=== PATIENT | female | born 1955 | race American Indian/Alaskan Native ===

== ENCOUNTER 2018-07-05 17:11 | Emergency (ER) | payer MEDICARE ==
[2018-07-05] MEDS ORDERED: NACL 0.9% 1000 ML 1,000 ML IV ONE (17:33)
[2018-07-05 18:06] LABS: Basophils # (Auto) 0.1 K/mm3 (0.0-0.1); Basophils % (Auto) 1.3 % (0.0-1.8); Eosinophils % (Auto) 0.5 % (0.0-4.3); Hematocrit 42.8 % (30.3-42.9); Hemoglobin 13.6 gm/dl (10.1-14.3); Lymphocytes % (Auto) 29.3 % (13.4-35.0); Mean Corpuscular HGB Conc 32 % (30-34); Mean Corpuscular Hemoglobin 27 pg (28-32); Mean Corpuscular Volume 83 fl (79-97); Monocytes # (Auto) 0.5 K/mm3 (0.0-0.8); Monocytes % (Auto) 7.6 % (0.0-7.3); Platelet Count 190 K/mm3 (140-440); Red Blood Count 5.13 M/mm3 (3.65-5.03)
[2018-07-05 18:25] LABS: Alanine Aminotransferase 15 units/L (7-56); BUN/Creatinine Ratio 10; Blood Urea Nitrogen 8 mg/dL (7-17); Calcium 9.5 mg/dL (8.4-10.2); Hemolysis Index 13; Lipase 33 units/L (13-60)
[2018-07-05 18:38] LABS: Bacteria,Urine 1+ /HPF (Negative); Bilirubin,Urine NEG (Negative); Blood,Urine MOD (Negative); Color,Urine Yellow (Yellow); Urobilinogen,Urine < 2.0 mg/dL (<2.0)
[2018-07-05] MEDS ORDERED: PROVENTIL IH ONE (20:16)
[2018-07-05] MEDS ORDERED: CATAPRES PO STA (20:17)
[2018-07-05] MEDS ORDERED: ZOFRAN ODT PO STA (20:17)
--- NOTE | 2018-07-05 23:49 | XRay Report ---
FINAL REPORT PROCEDURE: XR CHEST ROUTINE 2V TECHNIQUE: PA and lateral chest radiographs were obtained. CPT 62722 HISTORY: CHEST PAIN COMPARISON: No prior studies are available for comparison. FINDINGS: Heart: Normal. Mediastinum/Vessels: Normal. Lungs/Pleural space: No infiltrate, effusion, or pneumothorax. Bony thorax: No acute osseous abnormality. Other: IMPRESSION: No pulmonary infiltrates.
--- NOTE | 2018-07-06 00:23 | Emergency Department Report ---
ED General Adult HPI - General Chief complaint: Abdominal Pain Stated complaint: ABD PAIN Time Seen by Provider: 07/05/18 20:09 Source: patient Mode of arrival: Ambulatory Limitations: No Limitations - History of Present Illness Initial comments: 63-year-old [place] female recently relocated from [place] 4 months ago position emerge department complaining of 2-3 day history of nausea and left upper quadrant abdominal pain that radiates to her left chest associated with some shortness of breath and chest pressure, cough. She explains was having a d ull headache as well. Taking her medication blood pressure medication quite some time since relocating to [place]. She also has been out of Zyprexa as well.. She has no known sick contacts. Does report worsening symptomology having yellowish-green mucous production and occasional wheezes sensation as well. Cough was beginning more more prevalent when she is lying down. Sinus pressure as well Location: chest, abdomen Quality: dull Consistency: constant Improves with: none Worsens with: none Associated Symptoms: chest pain, cough, weakness - Related Data Previous Rx's Medication Instructions Recorded Last Taken Type ALBUTEROL Inhaler (OR & NICU) 1 puff IH Q4-6H PRN #1 inha 07/06/18 Unknown Rx [ProAir HFA Inhaler] Benzonatate [Tessalon Perle] 100 mg PO TID #20 capsule 07/06/18 Unknown Rx OLANzapine [ZyPREXA] 5 mg PO QDAY #30 tablet 07/06/18 Unknown Rx Omeprazole 40 mg PO DAILY #30 capsule. 07/06/18 Unknown Rx amLODIPine [Norvasc] 10 mg PO DAILY #30 tab 07/06/18 Unknown Rx Allergies Allergy/AdvReac Type Severity Reaction Status Date / Time codeine Allergy Vomiting Verified 07/05/18 17:29 ED Review of Systems ROS: Stated complaint: ABD PAIN Other details as noted in HPI Constitutional: denies: chills, fever Eyes: denies: eye pain, eye discharge, vision change ENT: congestion. denies: ear pain, throat pain Respiratory: cough. denies: shortness of breath, wheezing Cardiovascular: denies: chest pain, palpitations Endocrine: no symptoms reported Gastrointestinal: denies: abdominal pain, nausea, diarrhea Genitourinary: denies: urgency, dysuria, discharge Musculoskeletal: denies: back pain, joint swelling, arthralgia Skin: denies: rash, lesions Neurological: denies: headache, weakness, paresthesias Psychiatric: denies: anxiety, depression Hematological/Lymphatic: denies: easy bleeding, easy bruising ED Past Medical Hx - Past Medical History Hx Hypertension: Yes Hx Diabetes: Yes - Surgical History Past Surgical History?: Yes Additional Surgical History: hand - Social History Smoking Status: Current Every Day Smoker Substance Use Type: None - Medications Home Medications: Home Medications Medication Instructions Recorded Confirmed Last Taken Type ALBUTEROL Inhaler (OR & NICU) 1 puff IH Q4-6H PRN #1 inha 07/06/18 Unknown Rx [ProAir HFA Inhaler] Benzonatate [Tessalon Perle] 100 mg PO TID #20 capsule 07/06/18 Unknown Rx OLANzapine [ZyPREXA] 5 mg PO QDAY #30 tablet 07/06/18 Unknown Rx Omeprazole 40 mg PO DAILY #30 capsule. 07/06/18 Unknown Rx amLODIPine [Norvasc] 10 mg PO DAILY #30 tab 07/06/18 Unknown Rx ED Physical Exam - General Limitations: No Limitations General appearance: alert, in no apparent distress - Head Head exam: Present: atraumatic, normocephalic - Eye Eye exam: Present: normal appearance, PERRL, EOMI Pupils: Present: normal accommodation - ENT ENT exam: Present: normal exam, mucous membranes moist - Neck Neck exam: Present: normal inspection - Respiratory Respiratory exam: Present: normal lung sounds bilaterally. Absent: respiratory distress, rhonchi, chest wall tenderness, accessory muscle use - Cardiovascular Cardiovascular Exam: Present: regular rate, normal rhythm. Absent: systolic murmur, diastolic murmur, rubs, gallop - GI/Abdominal GI/Abdominal exam: Present: soft, normal bowel sounds, other (some quadrant pain examination. No Don Ordaz sign. no cva tenderness. no rebound. abdomen is soft) - Extremities Exam Extremities exam: Present: normal inspection - Back Exam Back exam: Present: normal inspection - Neurological Exam Neurological exam: Present: alert, oriented X3 - Psychiatric Psychiatric exam: Present: normal affect, normal mood - Skin Skin exam: Present: warm, dry, intact, normal color. Absent: rash ED Course Vital Signs 07/05/18 17:30 Temperature 98.9 F Pulse Rate 92 H Respiratory 18 Rate Blood Pressure 200/82 O2 Sat by Pulse 99 Oximetry ED Medical Decision Making - Lab Data Result diagrams: 07/05/18 17:45 07/05/18 17:45 Critical care attestation.: If time is entered above; I have spent that time in minutes in the direct care of this critically ill patient, excluding procedure time. ED Disposition Clinical Impression: Viral syndrome, Chest pain Disposition: DC-[id number] TO HOME OR SELFCARE Is pt being admited?: No Does the pt Need Aspirin: No Condition: Stable Instructions: Abdominal Pain (ED), Chest Pain (ED) Referrals: ASHWIN GONZALEZ MD [Primary Care Provider] - 3-5 Days [facility] [Provider Group] - 3-5 Days TIGRE BRADFORD MD [Staff Physician] - 3-5 Days
[2018-07-06 00:29] VITALS: BP 143/72
== END 2018-07-06 00:48 | disposition home or self-care (01) ==
LOC: ED 17:11
DX: B34.9 Viral infection, unspecified (principal); R07.89 Other chest pain; R05 Cough; R06.2 Wheezing; I10 Essential (primary) hypertension; E11.9 Type 2 diabetes mellitus without complications; F17.200 Nicotine dependence, unspecified, uncomplicated; Z88.5 Allergy status to narcotic agent
CPT/HCPCS: 36415; 71046; 80053; 81001; 83690; 84484; 85025; 94640; Q0162